=== PATIENT | female | born 1985 | race American Indian/Alaskan Native ===

== ENCOUNTER 2016-03-12 13:13 | Emergency (ER) | payer MEDICAID ==
[2016-03-12] MEDS ORDERED: TYLENOL PO ONE (15:32)
[2016-03-12] MEDS ORDERED: NACL 0.9% 1000 ML 1,000 ML IV ONE (15:32)
[2016-03-12] MEDS ORDERED: ZOFRAN IV ONE (15:32)
[2016-03-12 16:00] LABS: Basophils % (Auto) 0.6 % (0.0-1.8); Eosinophils % (Auto) 0.2 % (0.0-4.3); Hematocrit 34.5 % (30.3-42.9); Hemoglobin 11.3 gm/dl (10.1-14.3); Mean Corpuscular HGB Conc 33 % (30-34); Mean Corpuscular Hemoglobin 29 pg (28-32); Mean Corpuscular Volume 90 fl (79-97); Platelet Count 225 K/mm3 (140-440); Red Blood Count 3.84 M/mm3 (3.65-5.03); Red Cell Distribution Width 14.2 % (13.2-15.2); White Blood Count 6.7 K/mm3 (4.5-11.0)
[2016-03-12 16:12] LABS: INR 0.97 (0.87-1.13)
[2016-03-12 16:13] LABS: Anion Gap 17 mmol/L; Blood Urea Nitrogen 9 mg/dL (7-17); Calcium 8.7 mg/dL (8.4-10.2); Carbon Dioxide 22 mmol/L (22-30); Chloride 100.7 mmol/L (98-107); Glucose 77 mg/dL (65-100); Potassium 3.9 mmol/L (3.6-5.0); Sodium 136 mmol/L (137-145)
--- NOTE | 2016-03-12 16:13 | Emergency Department Report ---
ED General Adult HPI - General Chief complaint: Abdominal Pain Stated complaint: 15 WKS PREG/CRAMPING/EMESIS Time Seen by Provider: 03/12/16 15:23 Source: patient Mode of arrival: Ambulatory Limitations: No Limitations - History of Present Illness Initial comments: 30-year-old female currently approximately 15.5 weeks presents to the hospital with multiple complaints. His sister fifth history of 3 deliveries and one miscarriage. 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 Patient complains of intermittent crampy lower abdominal pain without aggravating or alleviating factors. She denies dysuria, or vaginal bleeding. Positive nausea and vomiting reported without diarrhea. Complaint #2. Frontal headache. Patient claims a constant frontal headache for the past 3 days. Patient took Tylenol which made her sleep of pain continued when she woke up. She denies focal weakness, numbness, blurred vision , or neck pain Complaint #3: Shortness of breath. Patient complains of shortness of breath including dyspnea on exertion the last 2 weeks. 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 Patient was placed on Lovenox empirically in December to prevent blood clot with this . No chest pain reported. - Related Data Home Medications Medication Instructions Recorded Confirmed Last Taken Enoxaparin [Lovenox] 40 mg SQ QDAY 03/12/16 03/12/16 Unknown Previous Rx's Medication Instructions Recorded Last Taken Type Ondansetron [Zofran Odt] 4 mg PO Q8HR #20 tab.rapdis 03/12/16 Unknown Rx Allergies Allergy/AdvReac Type Severity Reaction Status Date / Time No Known Allergies Allergy Verified 11/19/14 16:56 ED Review of Systems ROS: Stated complaint: 15 WKS PREG/CRAMPING/EMESIS Other details as noted in HPI Comment: All other systems reviewed and negative Other: Constitutional: No fevers chills Eyes: No eye pain visual changes ENT: No ear pain or throat pain Neck: Denies pain Respiratory: Denies cough wheezing Cardiovascular: Denies chest pain, palpitations, syncope GI: Denies nausea, vomiting, diarrhea, : Denies dysuria Musculoskeletal:post thorax pain Skin: Denies rash, lesions, erythema Neurologic: Denies headache, numbness, weakness Psychiatric: Denies suicidal ideation, hallucinations ED Past Medical Hx - Past Medical History Hx Pulmonary Embolism: Yes (2011) Additional medical history: anemia - Surgical History Additional Surgical History: D & C - Social History Smoking Status: Never Smoker Substance Use Type: None - Medications Home Medications: Home Medications Medication Instructions Recorded Confirmed Last Taken Type Enoxaparin [Lovenox] 40 mg SQ QDAY 03/12/16 03/12/16 Unknown History Ondansetron [Zofran Odt] 4 mg PO Q8HR #20 tab.rapdis 03/12/16 Unknown Rx ED Physical Exam - General Limitations: No Limitations - Other Other exam information: General: No limitations, patient is alert in no acute distress Head exam: Atraumatic, normocephalic Eyes exam: Normal appearance, pupils equal reactive to light, extraocular movements intact ENT: Moist mucous membrane, normal oropharynx Neck exam: Normal inspection, full range of motion, no meningismus nontender Respiratory exam: Clear to auscultation bilateral, no wheezes, rales, crackles Cardiovascular: Normal rate and rhythm, normal heart sounds Abdomen: Soft, nondistended, mild suprapubic tenderness uterine fundus just below umbilicus, with normal bowel sounds, no rebound, or guarding Extremity: Full range of motion normal inspection no deformity Back: Normal Inspection, full range of motion, tenderness to bilateral paraspinal muscles of the posterior thorax that improves with massage Neurologic: Alert, oriented x3, cranial nerves intact, no motor or sensory deficit Psychiatric: normal affect, normal mood Skin: Warm, dry, intact ED Course Vital Signs 03/12/16 03/12/16 13:25 16:30 Temperature 99.1 F Pulse Rate 83 70 Respiratory 16 15 Rate Blood Pressure 92/61 Blood Pressure 96/45 [Right] O2 Sat by Pulse 100 Oximetry - Reevaluation(s) Reevaluation #1: 03/12/16 17:32 Patient reports feeling better after Tylenol, normal saline, and Zofran. - Consultations Consultation #1: 03/12/16 17:46 Dr Brady consulted. Agree with outpatient follow up in office this week. ED Medical Decision Making - Lab Data Result diagrams: 03/12/16 15:42 03/12/16 15:42 Lab Results 03/12/16 03/12/16 03/12/16 Range/Units 15:42 15:42 15:42 WBC 6.7 (4.5-11.0) K/mm3 RBC 3.84 (3.65-5.03) M/mm3 Hgb 11.3 (10.1-14.3) gm/dl Hct 34.5 (30.3-42.9) % MCV 90 (79-97) fl MCH 29 (28-32) pg MCHC 33 (30-34) % RDW 14.2 (13.2-15.2) % Plt Count 225 (140-440) K/mm3 Lymph % (Auto) 25.4 (13.4-35.0) % [place] % (Auto) 9.1 H (0.0-7.3) % Eos % (Auto) 0.2 (0.0-4.3) % Baso % (Auto) 0.6 (0.0-1.8) % Lymph # 1.7 (1.2-5.4) K/mm3 [place] # 0.6 (0.0-0.8) K/mm3 Eos # 0.0 (0.0-0.4) K/mm3 Baso # 0.0 (0.0-0.1) K/mm3 Seg Neutrophils % 64.7 (40.0-70.0) % Seg Neutrophils # 4.4 (1.8-7.7) K/mm3 PT 12.8 (12.2-14.9) Sec. INR 0.97 (0.87-1.13) Sodium 136 L (137-145) mmol/L Potassium 3.9 (3.6-5.0) mmol/L Chloride 100.7 (98-107) mmol/L Carbon Dioxide 22 (22-30) mmol/L Anion Gap 17 mmol/L BUN 9 (7-17) mg/dL Creatinine 0.6 L (0.7-1.2) mg/dL Estimated GFR > 60 ml/min BUN/Creatinine Ratio 15.00 % Glucose 77 (65-100) mg/dL Calcium 8.7 (8.4-10.2) mg/dL Urine Color (Yellow) Urine Turbidity (Clear) Urine pH (5.0-7.0) Ur Specific [place] (1.003-1.030) Urine Protein (Negative) mg/dL Urine Glucose (UA) (Negative) mg/dL Urine Ketones (Negative) mg/dL Urine Blood (Negative) Urine Nitrite (Negative) Urine Bilirubin (Negative) Urine Urobilinogen (<2.0) mg/dL Ur Leukocyte Esterase (Negative) Urine WBC (Auto) (0.0-6.0) /HPF Urine RBC (Auto) (0.0-6.0) /HPF U Epithel Cells (Auto) (0-13.0) /HPF Urine Mucus /HPF 03/12/16 Range/Units 17:04 WBC (4.5-11.0) K/mm3 RBC (3.65-5.03) M/mm3 Hgb (10.1-14.3) gm/dl Hct (30.3-42.9) % MCV (79-97) fl MCH (28-32) pg MCHC (30-34) % RDW (13.2-15.2) % Plt Count (140-440) K/mm3 Lymph % (Auto) (13.4-35.0) % [place] % (Auto) (0.0-7.3) % Eos % (Auto) (0.0-4.3) % Baso % (Auto) (0.0-1.8) % Lymph # (1.2-5.4) K/mm3 [place] # (0.0-0.8) K/mm3 Eos # (0.0-0.4) K/mm3 Baso # (0.0-0.1) K/mm3 Seg Neutrophils % (40.0-70.0) % Seg Neutrophils # (1.8-7.7) K/mm3 PT (12.2-14.9) Sec. INR (0.87-1.13) Sodium (137-145) mmol/L Potassium (3.6-5.0) mmol/L Chloride (98-107) mmol/L Carbon Dioxide (22-30) mmol/L Anion Gap mmol/L BUN (7-17) mg/dL Creatinine (0.7-1.2) mg/dL Estimated GFR ml/min BUN/Creatinine Ratio % Glucose (65-100) mg/dL Calcium (8.4-10.2) mg/dL Urine Color Yellow (Yellow) Urine Turbidity Clear (Clear) Urine pH 6.0 (5.0-7.0) Ur Specific [place] 1.020 (1.003-1.030) Urine Protein <15 mg/dl (Negative) mg/dL Urine Glucose (UA) Neg (Negative) mg/dL Urine Ketones Tr (Negative) mg/dL Urine Blood Neg (Negative) Urine Nitrite Neg (Negative) Urine Bilirubin Neg (Negative) Urine Urobilinogen 2.0 (<2.0) mg/dL Ur Leukocyte Esterase Neg (Negative) Urine WBC (Auto) 1.0 (0.0-6.0) /HPF Urine RBC (Auto) 2.0 (0.0-6.0) /HPF U Epithel Cells (Auto) 2.0 (0-13.0) /HPF Urine Mucus 1+ /HPF - Radiology Data Radiology results: image reviewed (chest x-ray PA and lateral: No acute findings ) - Medical Decision Making Patient is currently on Lovenox empirically to prevent PE. She had no symptoms of DVT, tachycardia, hypoxia or significant dyspnea with exertion. Patient ambulating in the ED without difficulty. Patient's headache and cramps improved with acetaminophen and normal saline. Mild dehydration noted on her urine results. No signs of infection at this time. Patient will be encouraged to follow-up with her physician and continue her medications as prescribed. Xopenex will be Zofran will be added to take as needed for nausea and vomiting. heart tones auscultated in the ED - Differential Diagnosis dehydration, UTI, viral syndrome, pneumonia, CHF, PE Critical Care Time: No Critical care attestation.: If time is entered above; I have spent that time in minutes in the direct care of this critically ill patient, excluding procedure time. ED Disposition Clinical Impression: 15 weeks gestation of , Abdominal cramping, Dehydration, Dysuria during Head ache Qualifiers: Headache type: unspecified Headache chronicity pattern: acute headache Intractability: not intractable Qualified Code(s): R51 - Headache Vomiting Qualifiers: Vomiting type: unspecified Vomiting Intractability: non-intractable Nausea presence: with nausea Qualified Code(s): R11.2 - Nausea with vomiting, unspecified Disposition: DISCHARGED TO HOME OR SELFCARE Is pt being admited?: No Does the pt Need Aspirin: No Condition: Stable Instructions: (ED) Additional Instructions: Follow up with your admissions counselor doctor this week. Take tylenol as needed for pain and zofran as needed for nausea and vomiting. Return if symptoms worsen. Prescriptions: Ondansetron [Zofran Odt] 4 mg PO Q8HR #20 tab.[email or web address] Referrals: WOMEN'S CUSTOMER SUPPORT ADVISOR [Provider Group] - 3-5 Days Time of Disposition: 18:09
[2016-03-12 17:10] VITALS: BP 96/45
[2016-03-12 17:16] LABS: Bilirubin,Urine NEG (Negative); Blood,Urine NEG (Negative); Ketones,Urine TR mg/dL (Negative); Leukocyte Esterase,Urine NEG (Negative); Mucus,Urine 1+ /HPF; Nitrite,Urine NEG (Negative); Protein,Urine <15 mg/dL mg/dL (Negative)
--- NOTE | 2016-03-13 07:28 | XRay Report ---
ROUTINE CHEST, TWO VIEWS: HISTORY: Shortness of breath. The trachea, heart, mediastinal contour, lung coombs and bony thorax are unremarkable. IMPRESSION: Unremarkable chest x-ray.
== END 2016-03-12 18:53 | disposition home or self-care (01) ==
LOC: ED 13:13
DX: O21.0 Mild hyperemesis gravidarum (principal); E86.0 Dehydration; R51 Headache; R30.0 Dysuria; Z86.711 Personal history of pulmonary embolism; Z86.2 Personal history of diseases of the blood and blood-forming organs and certain disorders involving the immune mechanism; Z3A.15 15 weeks gestation of pregnancy
CPT/HCPCS: 36415; 71020; 80048; 81001; 85025; 85610; 96361; 96374; 99284; J2405; J7030

== ENCOUNTER 2016-08-14 17:27 | Emergency (ER) | payer MEDICAID ==
[2016-08-14 17:47] VITALS: BP 130/67
--- NOTE | 2016-08-14 17:49 | Emergency Department Report ---
Chief Complaint: Chest Pain Stated Complaint: CHEST PAIN Time Seen by Provider: 08/14/16 17:45 - HPI History of Present Illness: PT c/o epigastric pain since taking a [employer] powder for a headache. - ROS Review of Systems: +abd pain - sore throat + pain worsens with eating - Exam Vital Signs: Vital Signs 08/14/16 17:43 Temperature 98.5 F Pulse Rate 72 Respiratory 16 Rate Blood Pressure 130/67 O2 Sat by Pulse 100 Oximetry Physical Exam: pt looks well, non toxic. abd soft, + epigastric tenderness MSE screening note: Focused history and physical exam performed. Due to findings the following was ordered: labs ED Disposition for MSE Condition: Stable
[2016-08-14 18:06] LABS: Basophils % (Auto) 0.6 % (0.0-1.8); Eosinophils % (Auto) 1.9 % (0.0-4.3); Hemoglobin 11.7 gm/dl (10.1-14.3); Mean Corpuscular HGB Conc 32 % (30-34); Mean Corpuscular Hemoglobin 27 pg (28-32); Mean Corpuscular Volume 86 fl (79-97); Platelet Count 285 K/mm3 (140-440); Red Blood Count 4.31 M/mm3 (3.65-5.03); Red Cell Distribution Width 14.8 % (13.2-15.2); White Blood Count 5.1 K/mm3 (4.5-11.0)
[2016-08-14 18:23] LABS: Alanine Aminotransferase 10 units/L (7-56); Albumin 4.3 g/dL (3.9-5); Albumin/Globulin Ratio 1.3 %; Alkaline Phosphatase 63 units/L (35-129); Anion Gap 17 mmol/L; BUN/Creatinine Ratio 21.11; Blood Urea Nitrogen 19 mg/dL (7-17); Carbon Dioxide 26 mmol/L (22-30); Chloride 98.9 mmol/L (98-107); Glucose 88 mg/dL (65-100); Lipase 37 units/L (13-60); Potassium 4.1 mmol/L (3.6-5.0); Sodium 138 mmol/L (137-145); Total Protein 7.7 g/dL (6.3-8.2)
[2016-08-14 18:59] LABS: Bilirubin,Urine NEG (Negative); Blood,Urine NEG (Negative); Ketones,Urine NEG (Negative); Leukocyte Esterase,Urine NEG (Negative); Mucus,Urine 1+ /HPF; Nitrite,Urine NEG (Negative); Protein,Urine <15 mg/dL mg/dL (Negative); Urobilinogen,Urine < 2.0 mg/dL (<2.0)
--- NOTE | 2016-08-19 11:10 | ED Elopement Review ---
ED Pt Elopement review - Results review Lab results: Laboratory Tests 08/14/16 08/14/16 08/14/16 17:50 17:50 17:50 WBC 5.1 RBC 4.31 Hgb 11.7 Hct 37.0 MCV 86 MCH 27 L MCHC 32 RDW 14.8 Plt Count 285 Lymph % (Auto) 48.4 H [place] % (Auto) 8.7 H Eos % (Auto) 1.9 Baso % (Auto) 0.6 Lymph # 2.5 [place] # 0.5 Eos # 0.1 Baso # 0.0 Seg Neutrophils % 40.4 Seg Neutrophils # 2.1 Sodium 138 Potassium 4.1 Chloride 98.9 Carbon Dioxide 26 Anion Gap 17 BUN 19 H Creatinine 0.9 Estimated GFR > 60 BUN/Creatinine Ratio 21.11 Glucose 88 Calcium 9.0 Total Bilirubin 0.30 AST 15 ALT 10 Alkaline Phosphatase 63 Total Protein 7.7 Albumin 4.3 Albumin/Globulin Ratio 1.3 Lipase 37 HCG, Qual Negative Urine Color Urine Turbidity Urine pH Ur Specific [place] Urine Protein Urine Glucose (UA) Urine Ketones Urine Blood Urine Nitrite Urine Bilirubin Urine Urobilinogen Ur Leukocyte Esterase Urine WBC (Auto) Urine RBC (Auto) U Epithel Cells (Auto) Urine Mucus 08/14/16 18:30 WBC RBC Hgb Hct MCV MCH MCHC RDW Plt Count Lymph % (Auto) [place] % (Auto) Eos % (Auto) Baso % (Auto) Lymph # [place] # Eos # Baso # Seg Neutrophils % Seg Neutrophils # Sodium Potassium Chloride Carbon Dioxide Anion Gap BUN Creatinine Estimated GFR BUN/Creatinine Ratio Glucose Calcium Total Bilirubin AST ALT Alkaline Phosphatase Total Protein Albumin Albumin/Globulin Ratio Lipase HCG, Qual Urine Color Yellow Urine Turbidity Clear Urine pH 5.0 Ur Specific [place] 1.027 Urine Protein <15 mg/dl Urine Glucose (UA) Neg Urine Ketones Neg Urine Blood Neg Urine Nitrite Neg Urine Bilirubin Neg Urine Urobilinogen < 2.0 Ur Leukocyte Esterase Neg Urine WBC (Auto) 1.0 Urine RBC (Auto) 2.0 U Epithel Cells (Auto) 2.0 Urine Mucus 1+ - Call Back decision Pt Call Back Decision: No action required
== END 2016-08-14 18:00 | disposition left against medical advice (07) ==
LOC: ED 17:27
DX: R07.9 Chest pain, unspecified (principal); Z53.21 Procedure and treatment not carried out due to patient leaving prior to being seen by health care provider
CPT/HCPCS: 36415; 80053; 81001; 83690; 84703; 85025; 93005; 93010

== ENCOUNTER 2018-05-14 15:31 | Emergency (ER) | payer MEDICAID, OTHER ==
[2018-05-14] MEDS ORDERED: ASPIRIN PO ONE (16:08)
--- NOTE | 2018-05-14 16:11 | Emergency Department Report ---
Chief Complaint: Chest Pain Stated Complaint: CHEST PAIN Time Seen by Provider: 05/14/18 16:07 - HPI History of Present Illness: This is a 32 y.o. female that presents with substernal chest pain that is non- radiating. PMH PE and stopped taking coumadin and lovenox last July. - ROS Review of Systems: substernal chest pain - Exam Vital Signs: Vital Signs 05/14/18 16:07 Temperature 97.8 F Pulse Rate 63 Respiratory 18 Rate Blood Pressure 98/66 O2 Sat by Pulse 99 Oximetry MSE screening note: Focused history and physical exam performed. Due to findings the following was ordered: labs, ekg, cxr Main ED for further evaluation. ED Disposition for MSE Condition: Stable
[2018-05-14 17:20] LABS: Basophils % (Auto) 0.6 % (0.0-1.8); Hematocrit 37.7 % (30.3-42.9); Hemoglobin 12.1 gm/dl (10.1-14.3); Lymphocytes # (Auto) 1.9 K/mm3 (1.2-5.4); Mean Corpuscular HGB Conc 32 % (30-34); Mean Corpuscular Volume 90 fl (79-97); Monocytes # (Auto) 0.4 K/mm3 (0.0-0.8); Monocytes % (Auto) 9.3 % (0.0-7.3); Platelet Count 263 K/mm3 (140-440); Red Blood Count 4.18 M/mm3 (3.65-5.03); Red Cell Distribution Width 14.7 % (13.2-15.2)
[2018-05-14 17:34] LABS: BUN/Creatinine Ratio 18; Blood Urea Nitrogen 14 mg/dL (7-17); Calcium 8.6 mg/dL (8.4-10.2); Hemolysis Index 5
[2018-05-14 17:35] LABS: INR 0.96 (0.87-1.13)
[2018-05-14 17:36] LABS: Partial Thromboplastin Time 28.2 Sec. (24.2-36.6)
--- NOTE | 2018-05-14 19:33 | XRay Report ---
PROCEDURE: XR CHEST 1V AP TECHNIQUE: Single view HISTORY: Chest Pain COMPARISONS: None FINDINGS: Trachea midline. Heart size normal. No pneumothorax. No sizable effusion. No acute airspace disease. No acute bony abnormality. IMPRESSION: No active pulmonary disease.. This document is electronically signed by Jony Khan MD., May 14 2018 07:30:30 PM ET
--- NOTE | 2018-05-14 21:33 | Emergency Department Report ---
ED General Adult HPI - General Chief complaint: Chest Pain Stated complaint: CHEST PAIN Time Seen by Provider: 05/14/18 16:07 Source: patient Mode of arrival: Ambulatory Limitations: No Limitations - History of Present Illness Initial comments: 32-year-old female with a prior history of DVT and PE presents complaining of chest pain. Patient states the chest pain began at 9 AM today. Patient states the pain has been migratory from her left to right chest. Patient states she also had associated shortness of breath with this. Patient has a chest pain with exertion as well. Patient denies any cough or fever. Patient states that she had been taken off of Lovenox in June 2017. Patient denies any fever. Severity scale (0 -10): 10 - Related Data Home Medications Medication Instructions Recorded Confirmed Last Taken Enoxaparin [Lovenox] 40 mg SQ QDAY 03/12/16 05/17/16 05/14/16 Previous Rx's Medication Instructions Recorded Last Taken Type Ondansetron [Zofran Odt] 4 mg PO Q8HR #20 tab.rapdis 03/12/16 Unknown Rx Docusate Sodium [Colace] 100 mg PO BID PRN #60 capsule 05/18/16 Unknown Rx Ferrous Sulfate [Feosol 325 MG tab] 325 mg PO BID #120 tablet 05/18/16 Unknown Rx Zolpidem [Ambien] 10 mg PO QHS #30 tab 05/18/16 Unknown Rx oxyCODONE /ACETAMINOPHEN [Percocet 1 - 2 tab PO Q4HR #40 tab 05/18/16 Unknown Rx 5/325] Tramadol HCl [Ultram] 50 mg PO Q6HR #20 tablet 05/14/18 Unknown Rx Allergies Allergy/AdvReac Type Severity Reaction Status Date / Time No Known Allergies Allergy Verified 11/19/14 16:56 ED Review of Systems ROS: Stated complaint: CHEST PAIN Other details as noted in HPI Constitutional: denies: chills, fever Eyes: denies: eye pain, eye discharge, vision change ENT: denies: ear pain, throat pain Respiratory: denies: cough, shortness of breath, wheezing Cardiovascular: chest pain. denies: palpitations Endocrine: no symptoms reported Gastrointestinal: denies: abdominal pain, nausea, diarrhea Genitourinary: denies: urgency, dysuria, discharge Musculoskeletal: denies: back pain, joint swelling, arthralgia Skin: denies: rash, lesions Neurological: denies: headache, weakness, paresthesias Psychiatric: denies: anxiety, depression Hematological/Lymphatic: denies: easy bleeding, easy bruising ED Past Medical Hx - Past Medical History Previous Medical History?: Yes Hx Hypertension: No Hx Congestive Heart Failure: No Hx Diabetes: No Hx Deep Vein Thrombosis: Yes Hx Pulmonary Embolism: Yes (2011) Hx Renal Disease: No Hx Sickle Cell Disease: No Hx Seizures: No Hx Asthma: No Hx COPD: No Hx HIV: No Additional medical history: anemia/ delivered a 6mos stillborn baby 05/15/2016, pt has had to have blood transfusions over the years - Surgical History Past Surgical History?: Yes Additional Surgical History: D & C, 04/2016,tubiligation - Social History Smoking Status: Never Smoker Substance Use Type: None - Medications Home Medications: Home Medications Medication Instructions Recorded Confirmed Last Taken Type Enoxaparin [Lovenox] 40 mg SQ QDAY 03/12/16 05/17/16 05/14/16 History Ondansetron [Zofran Odt] 4 mg PO Q8HR #20 tab.rapdis 03/12/16 Unknown Rx Docusate Sodium [Colace] 100 mg PO BID PRN #60 capsule 05/18/16 Unknown Rx Ferrous Sulfate [Feosol 325 MG tab] 325 mg PO BID #120 tablet 05/18/16 Unknown Rx Zolpidem [Ambien] 10 mg PO QHS #30 tab 05/18/16 Unknown Rx oxyCODONE /ACETAMINOPHEN [Percocet 1 - 2 tab PO Q4HR #40 tab 05/18/16 Unknown Rx 5/325] Tramadol HCl [Ultram] 50 mg PO Q6HR #20 tablet 05/14/18 Unknown Rx ED Physical Exam - General Limitations: No Limitations General appearance: alert, other (minimal distress; awake) - Head Head exam: Present: atraumatic, normocephalic - Eye Eye exam: Present: normal appearance - ENT ENT exam: Present: mucous membranes moist - Neck Neck exam: Present: normal inspection - Respiratory Respiratory exam: Present: normal lung sounds bilaterally. Absent: respiratory distress - Cardiovascular Cardiovascular Exam: Present: regular rate, normal rhythm. Absent: systolic murmur, diastolic murmur, rubs, gallop - GI/Abdominal GI/Abdominal exam: Present: soft, normal bowel sounds - Extremities Exam Extremities exam: Present: normal inspection. Absent: pedal edema - Back Exam Back exam: Present: normal inspection - Neurological Exam Neurological exam: Present: alert, oriented X3 - Psychiatric Psychiatric exam: Present: normal affect, normal mood - Skin Skin exam: Present: warm, dry, intact, normal color. Absent: rash ED Course Vital Signs 05/14/18 05/14/18 05/14/18 16:07 22:19 23:17 Temperature 97.8 F Pulse Rate 63 88 Respiratory 18 18 18 Rate Blood Pressure 98/66 Blood Pressure 96/55 [Right] O2 Sat by Pulse 99 98 Oximetry ED Medical Decision Making - Lab Data Result diagrams: 05/14/18 16:54 05/14/18 16:54 - EKG Data EKG shows normal: sinus rhythm Rate: normal - EKG Data When compared to previous EKG there are: no significant change Interpretation: no acute changes - Medical Decision Making Patient has 2 sets of troponin which are normal. Patient is a normal EKG as well. Patient has a CT PE which shows no evidence of PE. Patient be discharged to follow up with cardiology and treated with Ultram therapy as an outpatient. - Differential Diagnosis pulmonary embolism; STEMI; NSTEMi; pneumonia; pneumothorax Critical care attestation.: If time is entered above; I have spent that time in minutes in the direct care of this critically ill patient, excluding procedure time. ED Disposition Clinical Impression: Chest pain Disposition: DC-01 TO HOME OR SELFCARE Is pt being admited?: No Does the pt Need Aspirin: No Condition: Stable Instructions: Chest Pain (ED) Prescriptions: Tramadol HCl [Ultram] 50 mg PO Q6HR #20 tablet Referrals: ERASMO NOEL MD [Primary Care Provider] - 3-5 Days Time of Disposition: 23:28 Print Language: FRENCH
[2018-05-14] MEDS ORDERED: ASPIRIN ONE (22:48)
[2018-05-14] MEDS ORDERED: ULTRAM PO ONE (22:51)
--- NOTE | 2018-05-14 22:58 | Cat Scan Report ---
PROCEDURE: CT ANGIOGRAM OF THE CHEST FOR PULMONARY EMBOLISM TECHNIQUE: Computerized axial tomographic angiography of the chest and pulmonary arteries was perfor med after the IV injection of iodinated nonionic contrast. The image data was postprocessed using max imum intensity projection (MIP) and 2-dimensional multiplanar reformatted (MPR) techniques. The exami nation is specifically tailored to the evaluation of the pulmonary arteries per clinical request. Au tomated exposure control, adjustment of mA and/or kV according to patient size, or iterative reconstr uction dose optimization techniques were utilized. CPT G9637, 93031 HISTORY: Shortness of breath R06.02, chest pain unspecified R07.9 , COMPARISONS: None . FINDINGS: Heart and pericardium: Normal. Thoracic aorta: There is no thoracic aortic aneurysm or dissection.. Pulmonary vasculature: Normal. No pulmonary emboli. Lymph nodes: No enlarged thoracic lymph nodes. Lungs: Lungs are expanded and clear. There are no infiltrates, effusions or pneumothoraces.. Pleural space: No effusion, thickening, or pneumothorax. Musculoskeletal structures: No significant abnormality. Upper abdominal structures: No significant abnormality. IMPRESSION: Normal exam. There is no pulmonary embolism.. This document is electronically signed by Milton Munoz MD., May 14 2018 10:56:47 PM ET
[2018-05-15 00:02] VITALS: BP 92/49
== END 2018-05-15 00:34 | disposition home or self-care (01) ==
LOC: ED 15:31
DX: R07.89 Other chest pain (principal); R06.02 Shortness of breath; Z86.718 Personal history of other venous thrombosis and embolism; Z86.711 Personal history of pulmonary embolism; Z86.2 Personal history of diseases of the blood and blood-forming organs and certain disorders involving the immune mechanism; Z98.51 Tubal ligation status; Z79.899 Other long term (current) drug therapy
CPT/HCPCS: 36415; 71045; 71275; 80048; 84484; 84703; 85025; 85379; 85610; 85730; 93005; 93010; 99285; Q9967